=== PATIENT | male | born 1990 | race Caucasian/White ===

== ENCOUNTER 2016-07-11 18:32 | Emergency (ER) | payer OTHER ==
[~2016-07-11] VITALS: Ht 172.7 cm; Wt 95.8 kg
[~2016-07-11 18:32] MED LIST: PERCOCET 5/31 TABLET PO
[2016-07-11] MEDS ORDERED: ZOFRAN ODT4 MG PO (21:03)
[2016-07-11] MEDS ORDERED: ULTRAM50 MG PO (21:03)
[2016-07-11 21:13] VITALS: BP 126/70
== END 2016-07-11 21:16 | disposition home or self-care (01) ==
LOC: EME 18:32
DX: S06.0X9A Concussion with loss of consciousness of unspecified duration, initial encounter (principal); S33.5XXA Sprain of ligaments of lumbar spine, initial encounter; M54.2 Cervicalgia; W22.8XXA Striking against or struck by other objects, initial encounter; Y99.0 Civilian activity done for income or pay; F17.200 Nicotine dependence, unspecified, uncomplicated
CPT/HCPCS: 70450; 72100; 99281; 99284

== ENCOUNTER 2017-04-05 17:22 | Emergency (ER) | payer OTHER ==
[~2017-04-05] VITALS: Ht 172.7 cm; Wt 97.7 kg
[~2017-04-05 17:22] MED LIST changes: +ULTRAM50 MG PO; +ZOFRAN ODT4 MG PO
[2017-04-05 17:49] VITALS: BP 143/97
[2017-04-05] MEDS ORDERED: VALIUM5 MG PO (19:24)
[2017-04-05] MEDS ORDERED: ULTRAM50 MG PO (19:24)
[2017-04-05] MEDS ORDERED: PREDNISONE10 MG PO (19:24)
== END 2017-04-05 20:03 | disposition home or self-care (01) ==
LOC: EME 17:22
DX: M54.5 Low back pain (principal); M62.838 Other muscle spasm; X50.0XXA Overexertion from strenuous movement or load, initial encounter; Y99.0 Civilian activity done for income or pay; F17.200 Nicotine dependence, unspecified, uncomplicated
CPT/HCPCS: 99281; 99284; J1100

== ENCOUNTER 2017-10-03 11:34 | Emergency (ER) | payer OTHER ==
[~2017-10-03] VITALS: Ht 172.7 cm; Wt 88.6 kg
[~2017-10-03 11:34] MED LIST changes: +PREDNISONE10 MG PO; +VALIUM5 MG PO
[2017-10-03 11:49] VITALS: BP 124/89
[2017-10-03] MEDS ORDERED: TORADOL10 MG PO (12:02)
[2017-10-03] MEDS ORDERED: VALIUM2 MG PO (12:02)
== END 2017-10-03 12:18 | disposition home or self-care (01) ==
LOC: EME 11:34
DX: S39.012A Strain of muscle, fascia and tendon of lower back, initial encounter (principal); X50.0XXA Overexertion from strenuous movement or load, initial encounter; Y93.89 Activity, other specified; Y99.0 Civilian activity done for income or pay; Z88.6 Allergy status to analgesic agent
CPT/HCPCS: 99281; 99283; J1885

== ENCOUNTER 2018-01-07 14:38 | Emergency (ER) | payer OTHER ==
[~2018-01-07] VITALS: Ht 172.7 cm; Wt 92.7 kg
[~2018-01-07 14:38] MED LIST changes: +TORADOL10 MG PO; +VALIUM2 MG PO
[2018-01-07 17:23] VITALS: BP 137/76
== END 2018-01-07 17:23 | disposition home or self-care (01) ==
LOC: EME 14:38
DX: S60.211A Contusion of right wrist, initial encounter (principal); W23.0XXA Caught, crushed, jammed, or pinched between moving objects, initial encounter; Y99.0 Civilian activity done for income or pay; F17.200 Nicotine dependence, unspecified, uncomplicated
CPT/HCPCS: 73110; 73130; 99281; 99283